=== PATIENT | female | born 1970 | race Hispanic/Latino ===

== ENCOUNTER 2024-07-28 17:52 | Emergency (ER) | payer SELFPAY ==
[~2024-07-28] VITALS: Ht 152.4 cm; Wt 75.7 kg
[2024-07-28 17:54] VITALS: TEMP 98.3
--- NOTE | 2024-07-28 18:22 | ERN ---
ED Note History of Present Illness Stated Complaint: ABSCESS NEAR VAGINA Chief Complaint: Abscess Time Seen by MD: 18:10 Time Seen by Midlevel: 18:10 Dictation: 54-year-old female presents to the emergency department for evaluation due to reported having warmth and tenderness to the right groin area for the past week. At this time, she rates the pain level as an 8/10. Patient reports having some chills but no confirmed fever. She denies having had this kind of presentation in the past. Patient states that she is diabetic and has her blood sugars under control. Upon initial evaluation, the patient presents mildly uncomfortable looking. Allergies: Coded Allergies: No Known Allergies (Unverified Allergy, Unknown, 07/28/24) Emergency Care CONSTRUCTION FLAGGER: None Home Meds Active Scripts Sulfamethoxazole/Trimethoprim (Bactrim Ds Tablet) 800 Mg-160 Mg Tablet, 1 TAB PO BID for 7 Days, #14 TAB 0 Refills Prov:ROMERO,[place] APPLICATION ARCHITECT 07/28/24 Sulfamethoxazole/Trimethoprim (Bactrim Ds Tablet) 800 Mg-160 Mg Tablet, 1 TAB PO BID for 7 Days, #14 TAB 0 Refills Prov:CAMERON ROMERO E APPLICATION ARCHITECT 07/28/24 Past Medical History Past Medical History: Arthritis, Diabetes-Type II, High Cholesterol, Kidney Stone Surgical History: Other Surgical History Other: KIDNEY STONE PSYCH History: no pertinent psych hx Social History: Lives with family History: Not Applicable RN Note Reviewed/Agreed w/PFSH: Yes Review of System Dictation See HPI. Initial Vital Sign VS Vital Signs Date Time Temp Pulse Resp B/P (MAP) Pulse Ox O2 Delivery O2 Flow Rate FiO2 07/28/24 17:54 98.2 82 16 149/92 98 Room Air 0 07/28/24 19:00 21 Physical Exam Dictation General: awake, alert, NAD Head/Face: Normocephalic, atraumatic Eyes: PERRL, EOMI ENT: Oral mucosa moist Neck: Trachea midline, supple Cardiovascular: RRR, no edema Respiratory: Symmetrical, non-labored Abdomen: Soft, non-tender, non-distended, no guarding. Skin: Moderate area of erythema, swelling and tenderness with area that is confluent. MS/Extremity: Pulses equal, no cyanosis, neurovascular intact, FROM Neuro: COAx4, GCS 15, steady gait, Psych: Normal behavior, mood, and affect normal ED Course ED Course Orders Procedure Category Date Status Time Acetaminophen With PHA 07/28/24 Complete Codeine (Tylenol-Code 18:30 Sulfamethox-Tmp Ds PHA 07/28/24 Complete 800/160 Tab (Bactrim 18:30 I&D Set Up Bedside CPOE 07/28/24 Transmitted (Er) 18:16 Lidocaine Hcl 1% 20ml PHA 07/28/24 Complete Vial (Lidocaine Hc 19:00 Lidocaine Hcl 1% 20ml PHA 07/28/24 Complete Vial (Lidocaine Hc 18:37 Current Medications Medications (Trade) Dose Ordered Sig/Tom Route PRN Reason Start Time Stop Time Status Last Admin Dose Admin Acetaminophen/ Codeine Phosphate (TYLenol-coDEINE TAB) 1 tab ONCE ONCE PO 07/28/24 18:30 07/28/24 18:31 DC 07/28/24 18:40 Lidocaine HCl (Lidocaine HCl 1% 20ml Vial) ONCE INJ 07/28/24 19:00 07/28/24 20:08 DC 07/28/24 18:40 Lidocaine HCl (Lidocaine HCl 1% 20ml Vial) 20 ml STK-MED ONCE .ROUTE 07/28/24 18:37 07/28/24 18:37 DC Trimethoprim/ Sulfamethoxazole (BactRIM DS) 1 tab ONCE PO 07/28/24 18:30 07/28/24 20:08 DC 07/28/24 18:40 Vital Signs Date Time Temp Pulse Resp B/P (MAP) Pulse Ox O2 Delivery O2 Flow Rate FiO2 07/28/24 19:00 78 18 132/68 98 Room Air* 0 21 07/28/24 17:54 98.2 82 16 149/92 98 Room Air 0 Medical Decision Making MDM MDM: Differential diagnosis: Abscess, folliculitis, cellulitis. Rationale: Tests considered and ordered secondary to shared decision making include: Previous outside records reviewed: Old ER visits. Risk of complication and/or morbidity or mortality of patient management: None Medications-Per medication reconciliation Need for hospitalization: Patient does not meet criteria for hospitalization. Need for emergency major/minor surgery: No There are no social concerns with this patient. Prescription drug management Prescriptions will include symptomatic care Patient's prior external medical records from other ER visits were reviewed by me as indicated. Prior testing and results from previous visits were reviewed. Prior tests were taken into account with medical decision making and resource utilization, independent historian/historians were used to obtain complete medical history. I independently interpreted the test that were performed, results were reviewed by me and considered findings on radiology if ordered. Medical management and examination interpretation discussions were had by me with other qualified healthcare professionals as indicated for the patient's care. Procedure Site: Right inguinal area Blade Size: 11 I & D Procedure: no betadine prepno sterile dressing applied Progress Moderate amount of purulent drainage obtained, I&D panel applied and patient tolerated the procedure well. DX & DISP Disposition: Discharge Departure Impression: Primary Impression: Abscess of right groin Condition: Stable Scripts Sulfamethoxazole/Trimethoprim (Bactrim Ds Tablet) 800 Mg-160 Mg Tablet 1 TAB PO BID for 7 Days, #14 TAB 0 Refills Prov: CAMERON ROMERO 07/28/24 Sulfamethoxazole/Trimethoprim (Bactrim Ds Tablet) 800 Mg-160 Mg Tablet 1 TAB PO BID for 7 Days, #14 TAB 0 Refills Prov: CAMERON ROMERO 07/28/24 Referrals: SELF,REFERRAL (PCP) I performed this substantive portion of this visit. I have reviewed and personally made and approve the management plan that is documented in the note by myself or the NORMA. I acknowledge full responsibility for the patient's management plan. CAMERON ROMERO Jul 28, 2024 18:22 ROBBIE SAINZ MD Jul 30, 2024 18:26
[2024-07-28] MEDS: acetaMINOPHEN WITH coDEINE 1 TAB TAB PO ONE (18:40)
[2024-07-28] MEDS: sulfaMETHOX-TMP DS 800/160 TAB PO SCH (18:40)
[2024-07-28] MEDS: LIDOCAINE HCL 1% 20 ML VIAL INJ SCH (18:40)
[2024-07-28] MEDS: LIDOCAINE HCL 1% 20 ML VIAL ONE (18:41)
[2024-07-28 19:00] VITALS: BP 132/68; PULSE 78; RESP 18; O2SAT 98
[2024-07-28] MEDS ORDERED: SULF1TAB42 PO (19:20)
== END 2024-07-28 20:05 | disposition home or self-care (01) ==
LOC: EDH 17:52
DX: L02.214 Cutaneous abscess of groin (principal); M19.90 Unspecified osteoarthritis, unspecified site; E11.9 Type 2 diabetes mellitus without complications; E78.00 Pure hypercholesterolemia, unspecified; Z79.899 Other long term (current) drug therapy
CPT/HCPCS: 10060; 99284